=== PATIENT | male | born 1990 | race Caucasian/White ===

== ENCOUNTER 2016-07-17 19:16 | Emergency (ER) | payer OTHER | END 2016-07-17 20:05 | disposition home or self-care (01) | LOC: ED 19:16 | DX: K08.89 Other specified disorders of teeth and supporting structures (principal); F17.210 Nicotine dependence, cigarettes, uncomplicated ==

== ENCOUNTER 2016-08-01 12:02 | Emergency (ER) | payer OTHER | END 2016-08-01 13:02 | disposition home or self-care (01) | LOC: ED 12:02 | DX: R21 Rash and other nonspecific skin eruption (principal); F17.210 Nicotine dependence, cigarettes, uncomplicated ==